=== PATIENT | female | born 1960 | race Caucasian/White ===

== ENCOUNTER 2019-08-18 16:46 | Emergency (ER) | payer SELFPAY ==
[~2019-08-18] VITALS: Ht 162.6 cm; Wt 76.5 kg
[~2019-08-18 16:46] MED LIST: ADULT LOW DOSE81 MG PO; ALBUTEROL SULF8.5 GM INH; ALENDRONATE SOD70 MG PO; CALCIUM 600 +1 EA17 PO; CALCIUM600 MG PO; CIPRO500 MG PO; DILAUDID4 MG PO; FENOFIBRATE160 MG PO; FLUOXETINE HCL20 MG PO; HEPARIN SO5000 UNIT3 INJ; HYDROMORPHONE HC4 MG PO; LISINOPRIL10 MG PO; LOVASTATIN20 MG PO; METFORMIN HCL500 M1 PO; MULTI VITAMIN1 EACH PO; NORCO 5-325 TA1 EACH PO; OMEGA 3 1,0001 EACH PO; PERCOCET 7.5-31 EACH PO; PROVENTIL HFA6.7 GM INH; VICODIN 5-3001 EACH PO; VITAMIN D250000 UNIT PO; VITAMIN D35000 UNIT PO
[2019-08-18] MEDS ORDERED: PREDNISONE20 MG PO (17:52)
== END 2019-08-18 18:17 | disposition home or self-care (01) ==
LOC: ED 16:46
DX: J40 Bronchitis, not specified as acute or chronic (principal); I10 Essential (primary) hypertension; E11.9 Type 2 diabetes mellitus without complications; E78.5 Hyperlipidemia, unspecified; F32.9 Major depressive disorder, single episode, unspecified; Z86.718 Personal history of other venous thrombosis and embolism; Z87.442 Personal history of urinary calculi; Z90.49 Acquired absence of other specified parts of digestive tract; Z88.5 Allergy status to narcotic agent; Z79.84 Long term (current) use of oral hypoglycemic drugs; Z79.899 Other long term (current) drug therapy
CPT/HCPCS: 71045; 94640; 94664; 99284-25; J8540